=== PATIENT | female | born 1980 | race Caucasian/White ===

== ENCOUNTER 2022-03-26 17:25 | Emergency (ER) | payer MEDICAID, SELFPAY ==
[2022-03-26 17:34] VITALS: BP 190/120; PULSE 109; RESP 26; TEMP 36.4; O2SAT 98; BMI 23.0
--- NOTE | 2022-03-26 18:31 | ED_ITS ---
HPI - General Adult General Time Seen by Provider: 18:31 Date Seen: 03/26/22 Chief complaint: Sore Throat Stated complaint: Throat feels swollen, Hard to breathe, Vomiting Time Seen by Provider: 03/26/22 17:27 Source: patient Mode of arrival: ambulatory Limitations: no limitations History of Present Illness HPI narrative: The patient is a 42-year-old white female alcoholic who reports many months of heavy drinking, has been through treatment many times. Who presents with nausea upset stomach, swollen uvula feeling and last drink this morning. She denies chest pain, shortness of breath, abdominal pain, neurologic complaints. She presents mostly because her uvula feels swollen and she has had some nausea today. She denies chest pain, shortness of breath, history of heart disease. She reports she is generally healthy other than her alcoholism, she also has hypertension and depression and she takes venlafaxine lisinopril and atorvastatin for cholesterol. Related Data Home Medications Medication Instructions Recorded Confirmed atorvastatin 20 mg tablet mg 03/26/22 cholecalciferol (vitamin D3) 125 03/26/22 mcg (5,000 unit) capsule cyanocobalamin (vitamin B-12) mcg 03/26/22 1,000 mcg tablet ergocalciferol (vitamin D2) 1,250 03/26/22 mcg (50,000 unit) capsule (Vitamin D2) lisinopril 20 mg tablet mg 03/26/22 metoprolol succinate 25 mg mg PO 03/26/22 tablet,extended release 24 hr tramadol 50 mg tablet mg 03/26/22 venlafaxine 150 mg mg PO 03/26/22 capsule,extended release 24 hr venlafaxine 75 mg capsule,extended mg PO 03/26/22 release 24 hr Allergies Allergy/AdvReac Type Severity Reaction Status Date / Time amoxicillin Allergy Intermediate Hives Verified 03/26/22 17:33 Review of Systems Status of ROS: Reports: 6 or more systems reviewed and unremarkable except as noted in History and below Exam Narrative: Exam Narrative: Objective: The patient is alert, blood pressure is 190/120, she is afebrile, O2 sat is 90% on room air Alert orient x3, noncyanotic, no difficulty breathing Neurologic is nonfocal Heart rhythm regular without murmur Lungs are clear HEENT shows no facial asymmetry, mouth clear Abdomen benign soft nontender no masses or peritonitis Extremities are no edema neurologic nonfocal Skin periphery is warm and dry Const: Vital Signs, click to edit/add: Vital Signs - 24 hr 03/26/22 17:34 Temperature 97.6 F Pulse Rate [Right Pulse Oximeter] 109 H Respiratory Rate 26 H Blood Pressure [Ri ght Upper Arm] 190/120 H Pulse Oximetry 98 Oxygen Delivery Me thod Room Air Course Vital Signs Vital signs: Initial Vital Signs Temperature 97.6 F 03/26/22 17:34 Temperature Source Temporal Artery Scan 03/26/22 17:34 Pulse Rate 109 H 03/26/22 17:34 Respiratory Rate 26 H 03/26/22 17:34 Blood Pressure 190/120 H 03/26/22 17:34 Blood Pressure Mean 143 03/26/22 17:34 Blood Pressure Position Sitting 03/26/22 17:34 Pulse Oximetry 98 03/26/22 17:34 Oxygen Delivery Method 03/26/22 17:34 Vital Signs Temperature 97.6 F 03/26/22 17:34 Pulse Rate 109 H 03/26/22 17:34 Respiratory Rate 26 H 03/26/22 17:34 Blood Pressure 190/120 H 03/26/22 17:34 Pulse Oximetry 98 03/26/22 17:34 Oxygen Delivery Method 03/26/22 17:34 Temperature 97.6 F 03/26/22 17:34 Pulse Rate 109 H 03/26/22 17:34 Respiratory Rate 26 H 03/26/22 17:34 Blood Pressure 190/120 H 03/26/22 17:34 Pulse Oximetry 98 03/26/22 17:34 Oxygen Delivery Method 03/26/22 17:34 Medical Decision Making [facility] Narrative Medical decision making narrative: Patient has a history of pharyngitis, with heavy alcohol intake. She does report which feels like a swollen uvula. She does have some mild redness of her throat. Will check COVID/influenza/RSV/strep, will also give IV fluid, IV Ativan and Zofran for nausea, rehydration with a L of IV saline, electrolytes, alcohol level be drawn. Disposition pending findings above in disposition and findings. Addendum: The patient feels markedly better after IV fluids and IV Zofran and Ativan. I will dispenser 6 Ativan tablets out of in [employer] meds to use as needed for nausea. I would recommend she consult with regular physician regarding inpatient or outpatient treatment for chemical dependency. Return to ED as needed. Continue her blood pressure medications and monitor blood pressure, recheck with primary care in the next couple of days to reassess that. Lab Data Labs: Lab Results 03/26/22 03/26/22 03/26/22 Range/Units 18:29 18:29 18:29 WBC 8.43 (4.50-11.00) K/uL RBC 5.02 (4.00-5.20) m/uL Hgb 15.8 (12.0-16.0) gm/dL Hct 46.9 (33.0-51.0) % MCV 93 (80-100) fL MCH 32 (26-34) pg MCHC 34 (32-36) gm/dL RDW Coeff of Kendal 13.1 (11.5-15.5) % Plt Count 132 L (140-440) K/uL Neut % (Auto) 64.2 (42.0-72.0) % Lymph % (Auto) 30.0 (20-44) % [place] % (Auto) 5.0 (0.0-11.0) % Eos % (Auto) 0.2 (0.0-7.0) % Baso % (Auto) 0.4 (0.0-3.0) % Neut # (Auto) 5.41 (1.7-7.0) K/uL Lymph # (Auto) 2.53 (0.90-2.90) K/uL [place] # (Auto) 0.40 (0.00-0.90) K/UL Eos # (Auto) 0.02 (0.00-0.50) K/uL Baso # (Auto) 0.03 (0.00-0.30) K/uL Sodium 138 (135-149) mmol/L Potassium 4.5 (3.6-5.1) mmol/L Chloride 100 (96-114) mmol/L Carbon Dioxide 21 (20-32) mmol/L BUN 13 (5-24) mg/dL Creatinine 0.5 (0.5-1.5) mg/dL Estimated Creat Clear 156.88 Estimated GFR 119 ml/min Glucose 140 H (60-115) mg/dL Calcium 9.0 (8.4-10.6) mg/dL Total Bilirubin 0.8 (0.1-1.5) mg/dL Direct Bilirubin 0.4 (0.0-0.5) mg/dL AST 51 H (12-35) U/L ALT 34 (4-35) U/L Alkaline Phosphatase 99 (40-150) U/L C-Reactive Protein < 0.5 L (0.5-1.0) mg/dL Total Protein 8.5 H (6.0-8.3) g/dL Albumin 4.7 (3.3-5.0) g/dL Amylase 79 (18-89) U/L Ethyl Alcohol 0.02 (0.01-0.03) % SARS-CoV-2 (PCR) Negative SARS-CoV-2 (Negative) Influenza Type A (PCR) Negative PCR FLU A (Negative) Influenza Type B (PCR) Negative PCR FLU B (Negative) RSV (PCR) Negative PCR RSV (Negative) Group A Strep DNA (Not Detectd) 03/26/22 Range/Units 18:29 WBC (4.50-11.00) K/uL RBC (4.00-5.20) m/uL Hgb (12.0-16.0) gm/dL Hct (33.0-51.0) % MCV (80-100) fL MCH (26-34) pg MCHC (32-36) gm/dL RDW Coeff of Kendal (11.5-15.5) % Plt Count (140-440) K/uL Neut % (Auto) (42.0-72.0) % Lymph % (Auto) (20-44) % [place] % (Auto) (0.0-11.0) % Eos % (Auto) (0.0-7.0) % Baso % (Auto) (0.0-3.0) % Neut # (Auto) (1.7-7.0) K/uL Lymph # (Auto) (0.90-2.90) K/uL [place] # (Auto) (0.00-0.90) K/UL Eos # (Auto) (0.00-0.50) K/uL Baso # (Auto) (0.00-0.30) K/uL Sodium (135-149) mmol/L Potassium (3.6-5.1) mmol/L Chloride (96-114) mmol/L Carbon Dioxide (20-32) mmol/L BUN (5-24) mg/dL Creatinine (0.5-1.5) mg/dL Estimated Creat Clear Estimated GFR ml/min Glucose (60-115) mg/dL Calcium (8.4-10.6) mg/dL Total Bilirubin (0.1-1.5) mg/dL Direct Bilirubin (0.0-0.5) mg/dL AST (12-35) U/L ALT (4-35) U/L Alkaline Phosphatase (40-150) U/L C-Reactive Protein (0.5-1.0) mg/dL Total Protein (6.0-8.3) g/dL Albumin (3.3-5.0) g/dL Amylase (18-89) U/L Ethyl Alcohol (0.01-0.03) % SARS-CoV-2 (PCR) (Negative) Influenza Type A (PCR) (Negative) Influenza Type B (PCR) (Negative) RSV (PCR) (Negative) Group A Strep DNA NOT DETECTED (Not Detectd) Discharge Plan Discharge Clinical Impression: Alcoholism, Pharyngitis Patient Disposition: Home, Self-Care Condition: Improved Additional Instructions: Light activity, fluids rest, Ativan as needed for a couple days, return as needed. Ativan will be used for her nausea which I think will persist. Would recommend consultation with CD treatment, or could call back to our social service for recommendations on inpatient or outpatient treatment for chemical dependency. Repeat visit to primary care in the next couple of days for reassessment of blood pressure, continue present blood pressure medications Activity Level: Light activity Discharge Diet: Regular Prescriptions: No Action venlafaxine 75 mg capsule,extended release 24hr PO atorvastatin 20 mg tablet lisinopril 20 mg tablet venlafaxine 150 mg capsule,extended release 24hr PO cyanocobalamin (vitamin B-12) 1,000 mcg tablet tramadol 50 mg tablet metoprolol succinate 25 mg tablet extended release 24 hr PO ergocalciferol (vitamin D2) [Vitamin D2] 1,250 mcg (50,000 unit) capsule cholecalciferol (vitamin D3) 125 mcg (5,000 unit) capsule Follow Up/Referrals: Marie Mas DO [Primary Care Provider] - Stand Alone Forms: MyHealth Info Instructions Discharge Comment: Pt given Ativan Instymed RX from doctor
[2022-03-26] MEDS: 0.9 % SODIUM CHLORIDE 1000 ml 1,000 ML 6000 ML IV (18:51)
[2022-03-26] MEDS: ONDANSETRON 2 MG/ML inj 4 MG IVP (18:56)
[2022-03-26 18:59] LABS: Basophils Absolute Auto 0.03 K/uL (0.00-0.30); Basophils Percent Auto 0.4 % (0.0-3.0); Eosinophils Absolute Auto 0.02 K/uL (0.00-0.50); Eosinophils Percent Auto 0.2 % (0.0-7.0); Hematocrit 46.9 % (33.0-51.0); Hemoglobin* 15.8 gm/dL (12.0-16.0); Immature Granulocytes Abs Auto 0.02 K/uL (0.00-0.30); Immature Granulocytes Pct Auto 0.2 %; Lymphocytes Absolute Auto 2.53 K/uL (0.90-2.90); Mean Corpuscular HGB Conc 34 gm/dL (32-36); Mean Corpuscular Hemoglobin 32 pg (26-34); Mean Corpuscular Volume 93 fL (80-100); Neutrophils Absolute Auto 5.41 K/uL (1.7-7.0); Neutrophils Percent Auto 64.2 % (42.0-72.0); Platelet Count* 132 K/uL (140-440); RDW Coefficient of Variation % 13.1 % (11.5-15.5); Red Blood Count 5.02 m/uL (4.00-5.20); White Blood Count* 8.43 K/uL (4.50-11.00)
[2022-03-26 19:00] LABS: Slide Review Reflex No
[2022-03-26] MEDS: LORazepam 2 MG/ML inj 1 MG IVP (19:10)
[2022-03-26] MEDS: METHYLPREDNISOLONE SOD SUCC 62.5 MG/ML (125) 125 MG IVP (19:10)
[2022-03-26 19:23] LABS: Strep A DNA Probe* NOT DETECTED (Not Detectd)
[2022-03-26 19:34] LABS: Albumin* 4.7 g/dL (3.3-5.0); Chloride* 100 mmol/L (96-114)
[2022-03-26 19:35] LABS: Potassium* 4.5 mmol/L (3.6-5.1); Sodium* 138 mmol/L (135-149)
[2022-03-26 19:36] LABS: Amylase* 79 U/L (18-89); PCR FLU A Negative PCR FLU A (Negative); PCR FLU B Negative PCR FLU B (Negative); PCR RSV Negative PCR RSV (Negative)
[2022-03-26 19:37] LABS: Alkaline Phosphatase* 99 U/L (40-150); Aspartate Amino Transferase* 51 U/L (12-35); Bilirubin Direct* 0.4 mg/dL (0.0-0.5); Bilirubin Total* 0.8 mg/dL (0.1-1.5); Carbon Dioxide* 21 mmol/L (20-32); Creatinine* 0.5 mg/dL (0.5-1.5); Est. Creatinine Clearance* 156.88; Estimated Glomerular Filt Rate 119 ml/min; Total Protein* 8.5 g/dL (6.0-8.3)
[2022-03-26 19:38] LABS: Alanine Aminotransferase* 34 U/L (4-35); Blood Urea Nitrogen* 13 mg/dL (5-24); Ethanol* 0.02 % (0.01-0.03); Glucose* 140 mg/dL (60-115)
[2022-03-26 19:40] LABS: SARS PCR* Negative SARS-CoV-2 (Negative)
[2022-03-26 19:41] LABS: C Reactive Protein* < 0.5 mg/dL (0.5-1.0)
--- NOTE | 2022-03-26 20:23 | ED.NURSE ---
Gave patient a 25mg tab metoprolol succinate per the doctor's order. Pt had vomited up blood pressure med earlier this evening before coming to the ER.
== END 2022-03-26 20:13 | disposition home or self-care (01) ==
PROVIDERS: Emergency Provider Family Medicine; PCP Family Medicine
DX: J02.9 Acute pharyngitis, unspecified (principal); F10.20 Alcohol dependence, uncomplicated
CPT/HCPCS: 36415; 80048; 80076; 82077; 82150; 85025; 86140; 87502; 87634; 87635; 87651; 96374; 96375; 99283; 99284; J2060; J2405; J2930; J7030

== ENCOUNTER 2022-07-25 14:51 | Outpatient (RCR) | payer MEDICAID, SELFPAY | END 2022-11-07 11:21 | disposition home or self-care (01) | PROVIDERS: PCP Family Medicine; Visit Provider Family Medicine | DX: M79.621 Pain in right upper arm (principal); M25.521 Pain in right elbow; M25.531 Pain in right wrist; M62.81 Muscle weakness (generalized); Z51.89 Encounter for other specified aftercare | CPT/HCPCS: 97140; 97161 ==

== ENCOUNTER 2024-04-28 20:20 | Outpatient (CLI) | payer MEDICAID, SELFPAY | END 2024-04-28 20:21 | disposition home or self-care (01) | LOC: SLEEP 20:20 | PROVIDERS: PCP Family Medicine; Visit Provider Nurse Practitioner | DX: G47.33 Obstructive sleep apnea (adult) (pediatric) (principal) | CPT/HCPCS: 95810 ==

== ENCOUNTER 2024-11-23 17:24 | Outpatient (CLI) | payer MEDICAID, SELFPAY ==
--- NOTE | 2024-11-23 17:30 | CRLHL7_ITS ---
For Patients: As a result of the Century Cures Act, medical imaging exams and procedure reports are released immediately into your electronic medical record. You may view this report before your referring provider. If you have questions, please contact your health care provider. INDICATION: Low back pain. Bilateral sciatica TECHNIQUE: Noncontrast sagittal and axial T1, T2, and sagittal STIR sequences are provided. No comparisons. FINDINGS: The overall stature, alignment and intrinsic marrow signal of the lumbar spine is within normal limits. Conus is normal. 1.5 cm cystic lesion of the right lobe of the liver may represent a simple cyst. L1-2, L2-3: Unremarkable. L3-4: Minor posterior central disc bulge results in no central canal or foraminal narrowing. L4-5: Mild broad-based posterior disc bulge with mild bilateral facet arthropathy results in [id number] right and mild left foraminal narrowing. Mild bilateral lateral recess narrowing. Central canal is patent. L5-S1: Mild broad-based posterior disc bulge, endplate osteophyte and facet arthropathy results in mild bilateral foraminal narrowing. No central canal narrowing. IMPRESSION: 1. Degenerative changes at L4-5 resulting in mild to moderate right, mild left foraminal narrowing with mild bilateral lateral recess narrowing. 2. Mild bilateral L5-S1 foraminal narrowing. Dictated by Michael Dias MD @ 11/23/2024 8:19:46 PM (Electronically Signed)
== END 2024-11-23 17:25 | disposition home or self-care (01) ==
PROVIDERS: PCP Family Medicine; Visit Provider Family Medicine
DX: M54.31 Sciatica, right side (principal); M51.26 Other intervertebral disc displacement, lumbar region; M51.27 Other intervertebral disc displacement, lumbosacral region
CPT/HCPCS: 72148